=== PATIENT | female | born 1995 | race Caucasian/White ===

== ENCOUNTER 2021-02-21 17:40 | Emergency (ER) | payer OTHER ==
[~2021-02-21] VITALS: Ht 157.5 cm; Wt 55.0 kg
[2021-02-21] MEDS ORDERED: IBUPROFEN 400MG TABLET PO ONE (18:45)
[2021-02-21] MEDS ORDERED: IBUP-2028 MT (18:45)
[2021-02-21] MEDS ORDERED: AMOX-424 MT (18:45)
[2021-02-21] MEDS ORDERED: BACITRACIN 15GM TUBE TOP ONE (18:45)
[2021-02-21] MEDS ORDERED: AMOXICILLIN/POTASSIUM CLAVULANATE 875/125MG TAB PO ONE (18:45)
[2021-02-21 19:09] VITALS: BP 110/57
[2021-02-21] MEDS ORDERED: BACITRACIN/POLYMYXIN B SULFATE OINT 15GM TOP ONE (19:15)
== END 2021-02-21 19:22 | disposition home or self-care (01) ==
LOC: ER 17:40
DX: S01.85XA Open bite of other part of head, initial encounter (principal); Y04.0XXA Assault by unarmed brawl or fight, initial encounter; Y93.89 Activity, other specified; Y92.89 Other specified places as the place of occurrence of the external cause; Y99.8 Other external cause status
CPT/HCPCS: 99283